=== PATIENT | female | born 1990 ===

== ENCOUNTER 2021-05-26 19:33 | Emergency (ER) | payer MEDICAID ==
[2021-05-26] MEDS ORDERED: Sodium Chloride 0.9% 10 ML Syringe FLUSH PRN (19:48)
[2021-05-26] MEDS ORDERED: Sodium Chloride 0.9% 500 ML IV ONE (19:49)
[2021-05-26] MEDS ORDERED: Ketorolac 30 MG/ML SDV IVPUSH ONE (19:49)
--- NOTE | 2021-05-26 19:52 | EDM.PDOC ---
ED HPI GENERAL MEDICAL PROBLEM - General Stated Complaint: abdominal pain Time Seen by Provider: 05/26/21 19:35 Source of Information: Reports: Patient, Other (Provider from walk-in clinic) History Limitations: Reports: No Limitations - History of Present Illness INITIAL COMMENTS - FREE TEXT/NARRATIVE: 31-year-old female who was sent to the emergency department from our walk-in clinic by Joanne Lebron NP secondary to fever and abdominal pain. The patient is a 31-year-old female who has had lower abdominal pain and cramping for the past 2 weeks. The pain has however worsened over the past 48 hours with much worse pain on the left than the right. She does have a history of endometriomas and ovarian cysts the patient had blood tests performed over there which were all reassuringly normal. Gen. a normal hemoglobin. She had no elevation of her inflammatory markers. Did have a fever 101F when she presented there. Urine test was performed and was negative and urine test was negative as well. The patient has had no nausea or vomiting. She has been drinking liquids well and she has been eating okay. These do not appear to affect her pain. She has had no vaginal discharge. Her pain is reported her quite severe. Ells me that she has had tingling in her arms and legs and she feels very restless. I did review the patient's note from the walk-in clinic and I also reviewed the patient's labs. I discussed all this with Joanne Lebron and our plan was to send the patient for CT scan of her abdomen and pelvis with IV contrast. I discussed all this with the patient and she is in agreement with this plan. Onset: Other (2 weeks ago) Duration: Getting Worse (Over the past few days) Location: Reports: Abdomen (Lower abdomen with left greater than right.) Quality: Reports: Sharp, Stabbing Severity: Moderate (to severe.) Improves with: Reports: None Worsens with: Reports: Other (Palpation), Movement Context: Reports: Other (As above.) Associated Symptoms: Reports: No Other Symptoms (Except as above.) Treatments [employer]: Reports: Other (see below) (Nothing today. 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 Social & Family History - Tobacco Use Tobacco Use Status *Q: Current Every Day Tobacco User - Alcohol Use Alcohol Use History: Yes - Living Situation & Occupation Occupation: Employed ED ROS GENERAL - Review of Systems Review Of Systems: See Below Constitutional: Reports: Fever, Malaise, Fatigue HEENT: Denies: Throat Pain, Throat Swelling Respiratory: Denies: Shortness of Breath, Cough Cardiovascular: Denies: Chest Pain, Palpitations Endocrine: Reports: Fatigue GI/Abdominal: Reports: Abdominal Pain. Denies: Diarrhea, Nausea, Vomiting : Reports: Pain (Pelvic pain with right greater than left.). Denies: Discharge, Dysuria, Hematuria Musculoskeletal: Denies: Neck Pain, Back Pain Skin: Denies: Diaphoresis, Rash Neurological: Denies: Dizziness, Headache Hematologic/Lymphatic: Denies: Easy Bleeding, Easy Bruising ED EXAM, GI/ABD - Physical Exam Exam: See Below Exam Limited By: No Limitations General Appearance: Alert, WD/WN, No Apparent Distress (Appears nontoxic and does not appear to be in any significant distress at this point.) Eyes: Bilateral: Normal Appearance, EOMI Ears: Normal External Exam, Hearing Grossly Normal Nose: Normal Inspection, Normal Mucosa, No Blood Throat/Mouth: Normal Inspection, Normal Lips, Normal Voice, No Airway Compromise Head: Atraumatic, Normocephalic Neck: Normal Inspection, Supple, Non-Tender, Full Range of Motion Respiratory/Chest: No Respiratory Distress, Lungs Clear, Normal Breath Sounds, No Accessory Muscle Use, Chest Non-Tender Cardiovascular: Normal Peripheral Pulses, Regular Rate, Rhythm, No Murmur GI/Abdominal Exam: Normal Bowel Sounds, Soft, No Mass, Guarding, Tender (In the lower abdomen and more so on the left lower abdomen than the right.). No: Rigid, Rebound Back Exam: Normal Inspection. No: CVA Tenderness (R), CVA Tenderness (L) Extremities: Normal Inspection, Normal Range of Motion, Non-Tender, No Pedal Edema, Normal Capillary Refill Neurological: Alert, Oriented, CN II-XII Intact, Normal Cognition, No Motor/Sensory Deficits Psychiatric: Normal Affect Skin Exam: Warm, Intact, Normal Color, No Rash Course - Vital Signs Last Recorded V/S: Last Vital Signs Temp 37.4 C 05/26/21 19:55 Pulse 92 05/26/21 22:03 Resp 18 05/26/21 22:03 BP 112/55 L 05/26/21 22:03 Pulse Ox 98 05/26/21 22:03 - Orders/Labs/Meds Orders: Active Orders 24 hr Category Date Time Status Abdomen Pelvis w Cont [CT] Stat Exams 05/26/21 19:50 Taken Peripheral IV Insertion Adult [OM.PC] Routine Oth 05/26/21 19:48 Ordered Meds: Medications Discontinued Medications Generic Name Dose Route Start Last Admin Trade Name Freq PRN Reason Stop Dose Admin Sodium Chloride 500 mls @ 999 mls/hr 05/26/21 19:49 05/26/21 20:05 Normal Saline IV 05/26/21 20:19 999 mls/hr .BOLUS ONE Administration Iopamidol 65 ml 05/26/21 20:24 05/26/21 20:39 Iopamidol 755 Mg/Ml 75 Ml Bottle IV 05/26/21 20:25 65 ml ASDIRECTED ONE Administration Ketorolac Tromethamine 30 mg 05/26/21 19:49 05/26/21 20:05 Ketorolac 30 Mg/Ml Sdv IVPUSH 05/26/21 19:50 30 mg ONETIME ONE Administration Sodium Chloride 10 ml 05/26/21 19:48 Sodium Chloride 0.9% 10 Ml Syringe FLUSH ASDIRECTED PRN Keep Vein Open - Radiology Interpretation Free Text/Narrative:: CT scan of the abdomen and pelvis showed bilateral adnexal masses with the left one being 4.7 x 3 cm in the right one being about 1.8 x 2 cm. Pelvic ultrasound was recommended. This was per the [facility] radiologist. - Re-Assessments/Exams Free Text/Narrative Re-Assessment/Exam: 05/26/21 21:45: CT scan of her abdomen and pelvis showed bilateral adnexal masses. There is no free fluid and the patient is awake and alert. She remains nontoxic appearing. She did have some improvement in her pain after the IV Toradol. Her pulse rate is in the 90s. She will need to follow-up with her primary provider/electronic systems technician for scheduling for a pelvic ultrasound. She can take ibuprofen and Tylenol as needed for pain. I do not feel any further testing or intervention needs to be done at this time. Precautions and reasons for return to the emergency department were discussed with the patient while she was in the emergency department are detailed in the patient's discharge instructions. Departure - Departure Time of Disposition: 22:00 Disposition: Home, Self-Care 01 Condition: Good (Stable) Clinical Impression: Adnexal mass, Pelvic pain Ovarian cyst Qualifiers: Laterality: bilateral Qualified Code(s): N83.201 - Unspecified ovarian cyst, right side - Discharge Information Instructions: Pelvic Pain, Female, [id number], Ovarian Cyst, [id number] Referrals: PCP,None [Primary Care Provider] - Forms: ED Department Discharge Additional Instructions: All of your blood tests were reassuring. No evidence of infection. CT scan of your abdomen and pelvis showed adnexal masses that are probably ovarian cyst. You will need to see your primary doctor or your electronic systems technician as you need a pelvic ultrasound to further evaluate these. You did not have any other abnorma lity on your CT scan. You can take ibuprofen and Tylenol for your pain. Increase your fluid intake. Back to the emergency department for increasing pain, high fever, unrelenting vomiting, severe weakness or any other concerning signs or symptoms. - My Orders Last 24 Hours: My Active Orders 05/26/21 19:48 Peripheral IV Insertion Adult [OM.PC] Routine 05/26/21 19:50 Abdomen Pelvis w Cont [CT] Stat - Assessment/Plan Last 24 Hours: My Active Orders 05/26/21 19:48 Peripheral IV Insertion Adult [OM.PC] Routine 05/26/21 19:50 Abdomen Pelvis w Cont [CT] Stat
[2021-05-26] MEDS ORDERED: Iopamidol 755 Mg/ML 75 ML Bottle IV ONE (20:24)
== END 2021-05-26 22:10 | disposition home or self-care (01) ==
LOC: FB.ED 19:33
DX: N83.201 Unspecified ovarian cyst, right side (principal); N83.202 Unspecified ovarian cyst, left side; N83.8 Other noninflammatory disorders of ovary, fallopian tube and broad ligament; Z88.2 Allergy status to sulfonamides; Z72.0 Tobacco use
CPT/HCPCS: 74177; 96374; 99284-25; J1885; J7040; Q9967